=== PATIENT | female | born 1985 | race Caucasian/White ===

== ENCOUNTER 2024-11-27 14:13 | Outpatient (CLI) | payer BC, SELFPAY ==
[2024-11-27 15:12] VITALS: PULSE 114
[2024-11-27 15:15] VITALS: BP 119/79; PULSE 105; RESP 16; TEMP 36.8; O2SAT 97
[2024-11-27 15:24] VITALS: BP 119/79; PULSE 105; TEMP 36.8
--- NOTE | 2024-11-27 16:20 | PGE_ITS ---
Date of Service Date of service: 11/27/24 Time of Service: 16:20 Assessment and Plan Assessment and plan (1) HRP (high risk ): Status: Acute Assessment and plan: 39-year-old -0-0-0 with a history of a term stillbirth. Currently 26 weeks 0 days. Status post slip and fall on ice. She is here for continuous monitoring. She will be monitored for a total of 6 hours, and if she has reassuring maternal and status, she will be discharged home with routine follow-up and precautions. All questions answered. (2) History of stillbirth: Status: Acute (3) Fall from slipping on ice: Status: Acute Subjective Subjective Interval history since last seen: Patient seen and examined. She low normal earlier where she slipped on some ice on her side. She is here on the center for monitoring. She will be monitored for a total of 6 hours, and as long as baby is well, and she is having some uterine activity. We discussed the fact that her baby looks good test, monitor with a reactive nonstress test, category 1 strip and no particular contractions. She was also given precautions to monitor for bleeding, leaking of development. She will continue to have her regularly scheduled visits. Objective Last Vital Signs Temp 98.2 F 11/27/24 14:37 Pulse 114 H 11/27/24 15:12 Resp 16 11/27/24 14:37 BP 119/79 11/27/24 14:37 Pulse Ox 97 11/27/24 14:37 Time Spent with Patient Time Spent with Patient: <25 minutes Time was spent: preparing to see the patient(eg.review tests), obtaining and/or reviewing separately otained hiistory, ordering medications,tests, procedures, referring, communicating with other health insurance healthcare representative and counseling the patient
[2024-11-27 20:19] VITALS: BP 122/77; PULSE 80; TEMP 36.6
== END 2024-11-27 21:15 ==
LOC: BCD 14:15 → OBS 14:19
PROVIDERS: Visit Provider Obstetrics & Gynecology
DX: O9A.212 Injury, poisoning and certain other consequences of external causes complicating pregnancy, second trimester (principal); O09.292 Supervision of pregnancy with other poor reproductive or obstetric history, second trimester; W00.0XXA Fall on same level due to ice and snow, initial encounter; Z3A.26 26 weeks gestation of pregnancy
CPT/HCPCS: 59025; G0378

== ENCOUNTER 2024-11-30 04:26 | Outpatient (CLI) | payer BC, SELFPAY ==
[2024-11-30 12:31] LABS: HCT 30.1 % (36.0-46.0); HGB 9.1 g/dL (11.2-15.7); MCHC 30.2 % (32.0-36.0); MPV 8.9 fL (8.0-11.0); Platelet Count 304 10^3/uL (130-400); RBC 4.02 10^6/uL (3.93-5.22); RDW 16.4 % (11.7-14.6); RDW-SD 44.4 fL; WBC 12.65 10^3/uL (4.4-10.8)
[2024-11-30 12:42] LABS: MCH 22.6 pg (27.0-33.0); MCV 75 fL (80-95)
[2024-11-30 13:07] LABS: Glucose,1 Hr (Glucola) 121 mg/dL (80-140)
== END 2024-11-30 04:27 | disposition home or self-care (01) ==
LOC: LBO 04:26
PROVIDERS: Obstetrics & Gynecology Gynecology; Visit Provider Obstetrics & Gynecology
DX: O09.812 Supervision of pregnancy resulting from assisted reproductive technology, second trimester (principal); O09.92 Supervision of high risk pregnancy, unspecified, second trimester
CPT/HCPCS: 36415; 82950; 85027

== ENCOUNTER 2024-12-12 02:00 | Outpatient (CLI) | payer BC, SELFPAY ==
--- NOTE | 2024-12-12 06:45 | DI.US_ITS ---
Exam(s) US OB ROSALINO WEIGHT EXAM: US OB ROSALINO WEIGHT CLINICAL HISTORY: measuring ahead of EGA,O09.90,h/o still . TECHNIQUE: Transabdominal obstetrical ultrasound was performed. COMPARISON: No exams were available for comparison FINDINGS: There is a single viable intrauterine gestation with cardiac activity identified-137 bpm The fetus is presently in breech position . Amniotic fluid: There is upper normal amount of amniotic fluid with an ROSALINO of 20.84cm. Placental location: The placenta is anterior grade 2,with no evidence of placenta previa. Dating parameters place this at approximately 28 weeks and 1 day gestational age, implying TROY of February 22, 2025. BPD measures 30 weeks and 3 days HC measures 31 weeks and 0 days AC measures 29 weeks and 6 days FL measures 27 weeks and 5 days Estimated weight is 1370 gm-3 pounds, 0 ounces Fetus is at the 80th percentile on the Hadlock scale. IMPRESSION:: Viable intrauterine gestation, as described above. Approximately 28 weeks and 1 day ge stational age. Upper normal amount of amniotic fluid. DATA REPOSITORY:
== END 2024-12-12 02:20 ==
LOC: DI 02:00
PROVIDERS: Visit Provider Obstetrics & Gynecology Gynecology
DX: Z87.59 Personal history of other complications of pregnancy, childbirth and the puerperium (principal); O09.92 Supervision of high risk pregnancy, unspecified, second trimester; Z3A.30 30 weeks gestation of pregnancy
CPT/HCPCS: 76816

== ENCOUNTER 2024-12-16 03:25 | Outpatient (RCR) | payer BC, SELFPAY ==
[2024-12-16] MEDS: IRON SUCROSE COMPLEX 200 MG in Normal Saline 100 ML 440 MG IVPB (13:32)
[2024-12-16] MEDS: Normal Saline Flush 5 ML SYR IVP (13:32)
== END 2024-12-19 23:59 | disposition home or self-care (01) ==
LOC: INF 03:25
PROVIDERS: Visit Provider Obstetrics & Gynecology
DX: O99.012 Anemia complicating pregnancy, second trimester (principal)
CPT/HCPCS: 96365; 85018; J1756

== ENCOUNTER 2025-01-04 16:38 | Outpatient (CLI) | payer BC, SELFPAY | END 2025-01-04 16:39 | disposition home or self-care (01) | LOC: LBO 16:38 | PROVIDERS: Visit Provider Obstetrics & Gynecology | DX: E03.9 Hypothyroidism, unspecified (principal) | CPT/HCPCS: 36415; 84443 ==

== ENCOUNTER 2025-01-11 03:04 | Outpatient (RCR) | payer BC, SELFPAY ==
[2024-12-23 07:43] LABS: HGB 9.1 g/dL (11.2-15.7)
[2024-12-23] MEDS: IRON SUCROSE COMPLEX 200 MG in Normal Saline 100 ML 440 MG IVPB (08:01)
[2024-12-23] MEDS: Normal Saline Flush 5 ML SYR IVP (08:31)
[2024-12-27 14:19] LABS: HGB 9.4 g/dL (11.2-15.7)
[2024-12-27] MEDS: IRON SUCROSE COMPLEX 200 MG in Normal Saline 100 ML 440 MG IVPB (14:37)
[2024-12-27] MEDS: Normal Saline Flush 5 ML SYR IVP (14:37)
[2025-01-03 14:21] LABS: HGB 10.5 g/dL (11.2-15.7)
[2025-01-03] MEDS: Normal Saline Flush 5 ML SYR IVP (14:23)
[2025-01-03] MEDS: IRON SUCROSE COMPLEX 200 MG in Normal Saline 100 ML 440 MG IVPB (14:46)
[2025-01-11 10:26] LABS: HGB 11.1 g/dL (11.2-15.7)
[2025-01-11] MEDS: Normal Saline Flush 5 ML SYR IVP (10:56)
== END 2025-01-18 23:59 | disposition home or self-care (01) ==
LOC: INF 03:04
PROVIDERS: Visit Provider Obstetrics & Gynecology
DX: O99.012 Anemia complicating pregnancy, second trimester (principal)
CPT/HCPCS: 36415; 96365; 85018; J1756

== ENCOUNTER 2025-01-11 08:28 | Outpatient (CLI) | payer BC, SELFPAY ==
[2025-01-11 12:20] VITALS: BP 120/78; PULSE 92
[2025-01-11 12:25] VITALS: BP 120/78; PULSE 82; TEMP 36.6
--- NOTE | 2025-01-11 20:13 | W.OBNST ---
Date of service: 01/11/25 Time of Service: 13:00 NST Evaluation Reason for NST Reasons for Nonstress Test: ADVANCED MATERNAL AGE Gestational Age Gestational Age in Weeks and Days: 32 Weeks and 3Days Test and Monitor Explained Test/Monitor Explained: Test Explained, Monitor Explained and Patient Verbalized Understanding Vital Signs Blood Pressure: 120/78 Pulse: 82 Temperature: 97.9 F Urine Results Urine Protein: Negative Urine Ketones: Negative Urine Glucose: Negative Urine Blood: Negative NST Information Date on Monitor: 01/11/25 Time on Monitor: 12:18 Date off Monitor: 01/11/25 Time off Monitor: 12:42 Total Time on Monitor: 24 NST Interventions: PO Hydration, Reposition Patient and Notify Provider Contraction Frequency: Occasional NST Evaluation Patient States Movement: Present FHR Baseline: 135 Variability: Moderate 6-25 bpm Accelerations: 15x15 Decelerations: None NST Results: Reactive Note Ultrasound Done: N/A. NST Note Note: Patient having NST for h/o term demise. Reports feeling well, today. Has growth US scheduled for 01/16. UA finds large leukocytes, today. Macrobid sent to pharmacy and UCx collected. NST Reviewed and Verified by: Erin Lau
[2025-01-11 20:15] VITALS: BP 120/78; PULSE 82; TEMP 36.6
== END 2025-01-11 12:52 ==
LOC: BCD 08:31 → OBS 12:16
PROVIDERS: Visit Provider Obstetrics & Gynecology
DX: O09.523 Supervision of elderly multigravida, third trimester (principal); Z87.59 Personal history of other complications of pregnancy, childbirth and the puerperium; Z3A.32 32 weeks gestation of pregnancy
CPT/HCPCS: 59025; 87086

== ENCOUNTER 2025-01-16 00:11 | Outpatient (CLI) | payer BC, SELFPAY ==
--- NOTE | 2025-01-16 07:30 | DI.US_ITS ---
Exam(s) US OB ROSALINO WEIGHT EXAM: US OB ROSALINO WEIGHT CLINICAL HISTORY: growth/rosalino,h/o stillbirth, from in vitro fertil,O09.819. TECHNIQUE: Transabdominal obstetrical ultrasound performed. COMPARISON: US US OB ROSALINO WEIGHT from 12/12/2024 FINDINGS:: Number of fetuses: 1 position: CEPHALIC Placental location: ANTERIOR No evidence of previa. BIOMETRIC DATA: BPD: 9.01cm, 36weeks 3days HC: 32.82cm, 37weeks 2days AC: 33.7cm, 37weeks 4days FL: 6.43cm, 33weeks 1day EFW: 2,925.09g, 6lb 9.39oz, >97% Composite Age: 36weeks 1day TROY: 02/12/2025 Heart Rate: 144bpm Amniotic fluid index: 30.5cm. Polyhydramnios. IMPRESSION: size and weight are above the expected range. Polyhydramnios. DATA REPOSITORY:
== END 2025-01-16 00:31 ==
LOC: DI 00:11
PROVIDERS: Visit Provider Obstetrics & Gynecology
DX: Z87.59 Personal history of other complications of pregnancy, childbirth and the puerperium (principal); O09.819 Supervision of pregnancy resulting from assisted reproductive technology, unspecified trimester
CPT/HCPCS: 76816

== ENCOUNTER 2025-01-18 10:21 | Outpatient (CLI) | payer BC, SELFPAY ==
[2025-01-18 10:44] VITALS: BP 119/73; PULSE 93; TEMP 36.7
[2025-01-18 10:53] VITALS: BP 119/73; PULSE 93; TEMP 36.7
--- NOTE | 2025-01-18 12:31 | W.OBNST ---
Date of service: 01/18/25 Time of Service: 12:31 NST Evaluation Reason for NST Reasons for Nonstress Test: OTHER, SEE COMMENT Reason for NST Other: Labor check Gestational Age Gestational Age in Weeks and Days: 33 Weeks and 3Days Test and Monitor Explained Test/Monitor Explained: Test Explained, Monitor Explained and Patient Verbalized Understanding Vital Signs Blood Pressure: 119/73 Pulse: 93 Temperature: 98.0 F Urine Results Urine Protein: Negative Urine Ketones: Negative Urine Glucose: Negative Urine Blood: Negative NST Information Date on Monitor: 01/18/25 Time on Monitor: 10:50 Date off Monitor: 01/18/25 Time off Monitor: 11:50 Total Time on Monitor: 60 NST Interventions: None NST Evaluation Patient States Movement: Present FHR Baseline: 130 Variability: Moderate 6-25 bpm Accelerations: 15x15 Decelerations: None NST Results: Reactive Note Ultrasound Done: N/A. NST Note Note: Symptoms of category 1, reactive NST. Cervical exam, soft, closed, posterior NST Reviewed and Verified by: Kenia Nugent
[2025-01-18 12:32] VITALS: BP 119/73; PULSE 93; TEMP 36.7
== END 2025-01-18 12:00 ==
LOC: BCD 10:21 → OBS 10:43
PROVIDERS: Visit Provider Obstetrics & Gynecology
DX: O47.03 False labor before 37 completed weeks of gestation, third trimester (principal); Z3A.33 33 weeks gestation of pregnancy
CPT/HCPCS: 59025

== ENCOUNTER 2025-01-23 08:50 | Outpatient (CLI) | payer BC, SELFPAY ==
[2025-01-23 16:26] VITALS: BP 123/74; PULSE 98
[2025-01-23 16:27] VITALS: BP 123/74; PULSE 98; TEMP 36.7
[2025-01-24 09:29] VITALS: BP 124/67; PULSE 75
== END 2025-01-23 17:20 ==
LOC: BCD 08:51 → OBS 15:43
PROVIDERS: Visit Provider Obstetrics & Gynecology
DX: Z3A.34 34 weeks gestation of pregnancy (principal); O09.523 Supervision of elderly multigravida, third trimester; O40.3XX1 Polyhydramnios, third trimester, fetus 1
CPT/HCPCS: 59025

== ENCOUNTER 2025-01-26 08:03 | Outpatient (CLI) | payer BC, SELFPAY ==
[2025-01-26 16:17] VITALS: BP 112/66; PULSE 81; TEMP 36.9
[2025-01-26 16:18] VITALS: BP 112/66; PULSE 81
[2025-01-27 18:48] VITALS: BP 112/66; PULSE 81; TEMP 36.9
--- NOTE | 2025-01-27 18:48 | W.OBNST ---
Date of service: 01/26/25 Time of Service: 16:00 NST Evaluation Reason for NST Reasons for Nonstress Test: POLYHYDRAMNIOS Gestational Age Gestational Age in Weeks and Days: 34 Weeks and 4Days Test and Monitor Explained Test/Monitor Explained: Test Explained, Monitor Explained and Patient Verbalized Understanding Vital Signs Blood Pressure: 112/66 Pulse: 81 Temperature: 98.4 F Urine Results Urine Protein: Negative Urine Ketones: Negative Urine Glucose: Negative Urine Blood: Negative NST Information Date on Monitor: 01/26/25 Time on Monitor: 16:12 Date off Monitor: 01/26/25 Time off Monitor: 16:39 Total Time on Monitor: 27 NST Interventions: PO Hydration Contraction Frequency: 2-5 NST Evaluation Patient States Movement: Present FHR Baseline: 120 Variability: Moderate 6-25 bpm Accelerations: 15x15 Decelerations: None NST Results: Reactive Note Ultrasound Done: N/A. NST Note NST Reviewed and Verified by: Kristen Anton
== END 2025-01-26 16:42 ==
LOC: BCD 08:08 → OBS 16:13
PROVIDERS: Visit Provider Obstetrics & Gynecology
DX: Z3A.34 34 weeks gestation of pregnancy (principal); O40.3XX1 Polyhydramnios, third trimester, fetus 1
CPT/HCPCS: 59025

== ENCOUNTER 2025-01-30 07:35 | Outpatient (CLI) | payer BC, SELFPAY ==
[2025-01-30 15:58] VITALS: BP 122/82; PULSE 96; RESP 18
[2025-01-30 16:04] VITALS: BP 122/82; PULSE 96
[2025-01-30 16:13] VITALS: PULSE 85; TEMP 36.7; O2SAT 97
[2025-01-30 16:34] VITALS: BP 122/82; PULSE 96; TEMP 36.7
--- NOTE | 2025-01-30 16:53 | W.OBNST ---
Date of service: 01/30/25 Time of Service: 16:00 NST Evaluation Reason for NST Reasons for Nonstress Test: GESTATIONAL HYPERTENSION, ADVANCED MATERNAL AGE, POLYHYDRAMNIOS and PREVIOUS DEMISE Reason for NST Other: 36 week demise with first Gestational Age Gestational Age in Weeks and Days: 35 Weeks and 1Days Test and Monitor Explained Test/Monitor Explained: Test Explained, Monitor Explained and Patient Verbalized Understanding Vital Signs Blood Pressure: 122/82 Pulse: 96 Temperature: 98.0 F Urine Results Urine Protein: Negative Urine Ketones: Negative Urine Glucose: Negative Urine Blood: Negative NST Information Date on Monitor: 01/30/25 Time on Monitor: 15:40 Date off Monitor: 01/30/25 Time off Monitor: 16:30 Total Time on Monitor: 50 NST Interventions: Reposition Patient NST Evaluation Patient States Movement: Present FHR Baseline: 130 Variability: Moderate 6-25 bpm Accelerations: 15x15 Decelerations: None NST Results: Reactive Note Ultrasound Done: N/A. NST Note Note: Pt had sono in DI with BPP 10/10 and ROSALINO 39.9. See record. Repeat NST Thursday. NST Reviewed and Verified by: Kristen Anton
[2025-01-30 16:55] VITALS: BP 122/82; PULSE 96; TEMP 36.7
== END 2025-01-30 16:48 ==
LOC: BCD 07:36 → OBS 15:46
PROVIDERS: Visit Provider Obstetrics & Gynecology
DX: O13.3 Gestational [pregnancy-induced] hypertension without significant proteinuria, third trimester (principal); Z3A.35 35 weeks gestation of pregnancy
CPT/HCPCS: 59025

== ENCOUNTER 2025-02-02 09:50 | Outpatient (CLI) | payer BC, SELFPAY | END 2025-02-02 17:00 | LOC: BCD 10:01 → OBS 15:48 | PROVIDERS: Visit Provider Obstetrics & Gynecology | DX: O09.293 Supervision of pregnancy with other poor reproductive or obstetric history, third trimester (principal); Z3A.35 35 weeks gestation of pregnancy | CPT/HCPCS: 96372; J0702 ==

== ENCOUNTER 2025-02-03 09:09 | Outpatient (CLI) | payer BC, SELFPAY ==
[2025-02-03 16:20] VITALS: BP 124/74; PULSE 125; TEMP 36.7
[2025-02-03 16:24] VITALS: BP 124/74; PULSE 125; TEMP 36.6
[2025-02-03] MEDS: Betamet Acet/Betamet Na Ph Inj. 30 MG/5 ML 12 MG IM (16:54)
--- NOTE | 2025-02-04 09:24 | W.OBNST ---
Date of service: 02/04/25 Time of Service: 09:24 NST Evaluation Reason for NST Reasons for Nonstress Test: OTHER, SEE COMMENT Reason for NST Other: hx demise, administration of betamethasone Gestational Age Gestational Age in Weeks and Days: 35 Weeks and 5Days Test and Monitor Explained Test/Monitor Explained: Patient Verbalized Understanding Vital Signs Blood Pressure: 124/74 Pulse: 125 Temperature: 98.1 F NST Information Date on Monitor: 02/03/25 Time on Monitor: 16:18 Date off Monitor: 02/03/25 Time off Monitor: 16:50 Total Time on Monitor: 32 NST Interventions: PO Hydration NST Evaluation Patient States Movement: Present FHR Baseline: 135 Variability: Moderate 6-25 bpm Accelerations: 15x15 Decelerations: None NST Results: Reactive Note Ultrasound Done: N/A. NST Note Note: Category 1, reactive NST. Patient received second dose of betamethasone. Scheduled for labor induction at [facility] on 02/07[facility]2025. All questions answered NST Reviewed and Verified by: Kenia Nugent
[2025-02-04 09:25] VITALS: BP 124/74; PULSE 125; TEMP 36.7
== END 2025-02-03 17:04 ==
LOC: BCD 09:09 → OBS 16:11
PROVIDERS: Visit Provider Obstetrics & Gynecology
DX: O09.293 Supervision of pregnancy with other poor reproductive or obstetric history, third trimester (principal); Z3A.35 35 weeks gestation of pregnancy
CPT/HCPCS: 96372; 59025; J0702

== ENCOUNTER 2025-02-06 07:37 | Outpatient (CLI) | payer BC, SELFPAY ==
[2025-02-06 15:58] VITALS: BP 132/56; BP 132/86; PULSE 94; TEMP 208.2; TEMP 97.9
[2025-02-06 16:17] VITALS: BP 124/93; BP 132/87; PULSE 80; TEMP 36.6
[2025-02-06 16:18] VITALS: BP 132/87; PULSE 77
--- NOTE | 2025-02-06 16:26 | W.OBNST ---
Date of service: 02/06/25 Time of Service: 16:26 NST Evaluation Reason for NST Reasons for Nonstress Test: PREVIOUS DEMISE Gestational Age Gestational Age in Weeks and Days: 36 Weeks and 1Days Test and Monitor Explained Test/Monitor Explained: Test Explained Vital Signs Blood Pressure: 132/56 Pulse: 94 Temperature: 208.2 F NST Information Date on Monitor: 02/06/25 Time on Monitor: 15:49 Date off Monitor: 02/06/25 Time off Monitor: 16:16 Total Time on Monitor: 27 NST Evaluation Patient States Movement: Present FHR Baseline: 125 Variability: Moderate 6-25 bpm Accelerations: 15x15 Decelerations: None NST Results: Reactive Note Ultrasound Done: N/A. NST Note Note: Category 1, reactive NST. Labor induction scheduled for tomorrow. NST Reviewed and Verified by: Kenia Nugent
[2025-02-06 16:27] VITALS: BP 132/56; PULSE 94; TEMP 208.2; TEMP 97.9
== END 2025-02-06 16:24 | disposition other institution (70) ==
LOC: BCD 07:37 → OBS 15:54
PROVIDERS: Visit Provider Obstetrics & Gynecology
DX: Z3A.36 36 weeks gestation of pregnancy (principal); O09.813 Supervision of pregnancy resulting from assisted reproductive technology, third trimester; Z87.59 Personal history of other complications of pregnancy, childbirth and the puerperium
CPT/HCPCS: 59025; G0378

== ENCOUNTER 2025-02-15 12:53 | Outpatient (REF) | payer BC, SELFPAY ==
[2025-02-15 13:31] LABS: PROTEIN < 6.0 mg/dL
[2025-02-15 13:32] LABS: COMMENT (LAB VIEW ONLY) < 13.00 mg/dL
== END 2025-02-15 12:54 | disposition home or self-care (01) ==
LOC: LBN 12:53
PROVIDERS: Visit Provider Obstetrics & Gynecology
DX: O14.90 Unspecified pre-eclampsia, unspecified trimester (principal); R03.0 Elevated blood-pressure reading, without diagnosis of hypertension
CPT/HCPCS: 82565; 84156

== ENCOUNTER 2025-02-15 12:55 | Outpatient (CLI) | payer BC, SELFPAY ==
[2025-02-15 13:13] LABS: HCT 33.4 % (36.0-46.0); HGB 10.7 g/dL (11.2-15.7); MCH 25.8 pg (27.0-33.0); MCV 81 fL (80-95); MPV 8.5 fL (8.0-11.0); Platelet Count 416 10^3/uL (130-400); RBC 4.15 10^6/uL (3.93-5.22); RDW-SD 62.3 fL; WBC 11.81 10^3/uL (4.4-10.8)
[2025-02-15 13:31] LABS: Hemoglobin A1C 5.5 % (<5.7)
[2025-02-15 14:19] LABS: RDW 22.2 % (11.7-14.6)
[2025-02-15 20:01] LABS: ALT 35 U/L (14-59); AST 19 U/L (15-37); Alkaline Phosphatase 142 U/L (46-116); Anion Gap 8.4 mmol/L (3-11); BUN 13 mg/dL (7-18); Bilirubin, Total 0.2 mg/dL (0.2-1.0); CO2 26.6 mmol/L (21.0-32.0); CREATININE 0.9 mg/dL (0.55-1.02); Calcium 9.3 mg/dL (8.5-10.1); Chloride 105 mmol/L (98-107); Estimated GFR 83.92 (mL/min/1.73m2); Glucose 91 mg/dL (74-106); Potassium 3.9 mmol/L (3.5-5.1); Sodium 140 mmol/L (136-145)
== END 2025-02-15 12:56 | disposition home or self-care (01) ==
LOC: LBO 12:55
PROVIDERS: Visit Provider Obstetrics & Gynecology
DX: E88.819 Insulin resistance, unspecified (principal); O40.9XX0 Polyhydramnios, unspecified trimester, not applicable or unspecified; O36.60X0 Maternal care for excessive fetal growth, unspecified trimester, not applicable or unspecified; Z3A.28 28 weeks gestation of pregnancy; R03.0 Elevated blood-pressure reading, without diagnosis of hypertension
CPT/HCPCS: 36415; 80053; 85027; 83036

== ENCOUNTER 2025-04-14 18:04 | Outpatient (REF) | payer BC, SELFPAY ==
[2025-04-14 18:09] LABS: HCT 38.2 % (36.0-46.0); HGB 12.1 g/dL (11.2-15.7); MCH 26.2 pg (27.0-33.0); MCHC 31.7 % (32.0-36.0); MCV 83 fL (80-95); MPV 9.7 fL (8.0-11.0); Platelet Count 301 10^3/uL (130-400); RBC 4.62 10^6/uL (3.93-5.22); RDW 15.7 % (11.7-14.6); RDW-SD 47.4 fL; WBC 8.90 10^3/uL (4.4-10.8)
[2025-04-14 18:20] LABS: Iron 82 ug/dL (50-170); Total Iron Binding Capacity 288 ug/dL (250-450); Transferrin Sat 28 % (15-50)
[2025-04-14 19:06] LABS: ALT 37 U/L (14-59); AST 19 U/L (15-37); Albumin 4.1 g/dL (3.4-5.0); Alkaline Phosphatase 99 U/L (46-116); Anion Gap 10.1 mmol/L (3-11); BUN 17 mg/dL (7-18); Bilirubin, Total 0.3 mg/dL (0.2-1.0); CO2 27.9 mmol/L (21.0-32.0); Calcium 9.3 mg/dL (8.5-10.1); Chloride 103 mmol/L (98-107); Estimated GFR 73.49 (mL/min/1.73m2); Ferritin 30 ng/mL (8-252); Folate 9.5 ng/mL (8.6-20.0); Glucose 92 mg/dL (74-106); Potassium 4.0 mmol/L (3.5-5.1); Sodium 141 mmol/L (136-145); TSH (W/Ref FT4) 1.43 uIU/mL (0.36-3.74); Total Protein 7.3 g/dL (6.4-8.2); Vitamin B12 453 pg/mL (193-986); Vitamin D 25 Total 40 ng/mL (30-100)
== END 2025-04-14 18:05 | disposition home or self-care (01) ==
LOC: LBN 18:04
PROVIDERS: Visit Provider Registered Nurse
DX: E03.9 Hypothyroidism, unspecified (principal); D64.9 Anemia, unspecified
CPT/HCPCS: 80053; 82306; 85027; 82607; 82728; 82746; 83540; 83550; 84443